=== PATIENT | male | born 1995 | race Caucasian/White ===

== ENCOUNTER 2020-06-01 20:10 | Emergency (ER) | payer BC, SELFPAY ==
--- NOTE | 2020-06-01 20:17 | PC.NURSE ---
EKG BEING OBTAINED AT THIS TIME.
[2020-06-01 20:19] VITALS: BP 129/67; PULSE 73; RESP 18; TEMP 37.1; O2SAT 97; BMI 27.1
[2020-06-01 20:30] VITALS: BP 120/78; PULSE 57; PULSE 66; RESP 19; TEMP 36.8; O2SAT 97
--- NOTE | 2020-06-01 20:44 | ECG_ITS ---
Test Reason : CHEST PAIN Blood Pressure : / mmHG Vent. Rate : 064 BPM Atrial Rate : 064 BPM P-R Int : 126 ms QRS Dur : 110 ms QT Int : 416 ms P-R-T Axes : 028 060 029 degrees QTc Int : 429 ms Normal sinus rhythm Normal ECG No previous ECGs available Referred By: Lee Olivas Electronically Signed By:RAFFY DURAN MD
--- NOTE | 2020-06-01 20:58 | ED_ITS ---
HPI - Arrhythmia/Palpitations General Chief Complaint: Arrhythmia/Palpitations Stated Complaint: palpitations Time Seen by Provider: 06/01/20 20:44 Source: patient Mode of arrival: ambulatory Limitations: no limitations History of Present Illness HPI narrative: patient presents to ED for Resolved palpitation. patient states around 13:00 he had palpitations while at home with his mother that then reslved. Patient denies any shortness of breath, swelling of lower extremities, calf pain, trauma to the chest, shortness of breath, any use of crack /cocaine, alcohol abuse, energy drinks, recent long travel, recent surgery, or history of blood clots. Patient states this happened twice before in the past. patient denies any chest pain, eye bulging, weight loss, weight gain, change in body temperature, coughing, fever, chills, left arm pain or night sweats. Related Data Allergies Allergy/AdvReac Type Severity Reaction Status Date / Time asparaginase Allergy Anaphylaxis Verified 06/01/20 20:25 plasma protein fraction Allergy Anaphylaxis Verified 06/01/20 20:25 Review of Systems Constitutional: Constitutional: Reports as per HPI and Reports no additional constitutional complaints Eyes: Eyes: Reports as per HPI and Reports no additional eye complaints ENT: Reports system reviewed and no additional complaints, except as documented and Reports as per HPI Cardiovascular: Cardiovascular: Reports as per HPI and Reports no additional cardiovascular complaints Comments: palpitations Respiratory: Respiratory: Reports as per HPI and Reports no additional res piratory complaints Gastrointestinal: Gastrointestinal: Reports as per HPI and Reports no addition al gastrointestinal complaints Genitourinary: Genitourinary: Reports no additional male genitourinary complaints and Reports as per HPI Musculoskeletal: Musculoskeletal: Reports no additional musculoskeletal complaints and Reports as per HPI Neurologic: Reports system reviewed and no additional complaints, except as documented and Reports as per HPI Psychiatric: Psychiatric: Reports no additional psychiatric complaints and R eports as per HPI PMFSH Past Medical History Medical History (Updated 06/01/20 @ 23:20 by KIRSTY Greene) Kidney calculi Non-Hodgkin lymphoma in remission Social History Social History Smoking Status: Never smoker Use of substances other than those prescribed or required for medical reasons: Yes Substance Use Type: Other Substance Use Type Other:: mushrooms Advance Directives: No Advance Directives Information Provided: Yes Physical Exam Vital Signs: Vital Signs: Last Vital Signs Temp 98.5 F 06/01/20 22:21 Pulse 63 06/01/20 22:21 Resp 15 06/01/20 22:21 BP 125/74 06/01/20 22:21 Pulse Ox 96 06/01/20 22:21 Body Mass Index 27.1 Const: General: cooperative, healthy appearing, comfortable, no acute distress, well developed, alert, awake and Physically active Orientation/consciousness: patient oriented x3 HENMT: Other: SLight erythema on both cheeks due to wearing of constructions masks. patinet states slight itchiness. Head: Yes normal to inspection and Yes No palpable skull fracture present Throat: Yes posterior oropharynx normal, Yes tonsils normal and Yes uvula midline Eyes: General: appearance normal, both eyes and all related structures Neck: Neck: Yes normal visual inspection, Yes full ROM, Yes no lymphadenopathy, Yes no meningeal signs, Yes trachea midline, Yes supple and No tender Chest: Chest palpation & inspection: normal inspection of the chest, normal palpation of entire chest wall and no localized rib tenderness Resp: Effort & Inspection: normal respiratory effort and able to speak in complete sentences Auscultation: clear to auscultation bilaterally Cardio: Jugular venous distension: no JVD Heart sounds: S1 normal heart sound present and S2 normal heart sound present GI: Inspection: Yes normal to inspection and No abdominal wall ecchymosis Palpation (GI): Soft to palpation, not firm, nontender, no guarding and not rigid : General: No CVA tenderness and Yes no CVA tenderness Back/Spine/Pelvis: Back: no CVA tenderness, No CVA tenderness and No back tenderness Skin: General skin exam: no rashes or lesions noted Neuro: General: patient oriented x3, gait normal, no meningeal signs and CN's II-XI intact bilaterally Cranial nerves: Yes CN's II-XII intact bilaterally Extrem: General: Yes normal to inspection and Yes full ROM Psych: Appearance: grossly normal, well kempt and not disheveled Course Course Course Narrative: Patient presently denies having any palpitation. Patient states last episode without palpitation was on 13:00 this afternoon. Patient will medical evaluation including troponin, D-dimer, and thyroid level. Patient also have EKG. Most likely patient having anxiety. Patient presently not in any distress. Patient informed to take benadryl for mild itchy facial rash due to mask. Reevaluation(s) Reevaluation #1: patient EKG is normal. troponin, and D-dimer came back negative. Recent labs include electrolytes are Normal. c TSH is normal. Perc score is 0. Patient is safe for discharge. Chest x-ray negative. Time: 23:16 MDM - Arrhythmia/Palpitations MDM Narrative Medical decision making narrative: palpitation Lab Data Result diagrams: 06/01/20 21:11 06/01/20 21:48 Labs: Lab Results 06/01/20 06/01/20 06/01/20 Range/Units 21:11 21:11 21:11 WBC 9.8 (4.8-10.8) X10*3/uL RBC 5.63 (4.60-5.80) X10*6/uL Hgb 17.5 (14.0-18.0) g/dl Hct 50.8 (42-52) % MCV 90.2 (80-98) fL MCH 31.1 (27.0-33.0) pg MCHC 34.4 (31.0-36.0) g/dl RDW 13.4 (11.0-16.0) % Plt Count 203 (160-400) X10*3/uL MPV 10.4 (9.4-12.4) fL Immature Gran % (Auto) 0.4 (0.0-0.4) % Neut % (Auto) 55.8 (45-73) % Lymph % (Auto) 30.7 (20-40) % [place] % (Auto) 12.0 H (2-11) % Eos % (Auto) 0.4 (0-4) % Baso % (Auto) 0.7 (0-2) % Lymph # (Auto) 3.0 (1.2-4.9) X10*3/uL [place] # (Auto) 1.2 (0.1-1.2) X10*3/uL Eos # (Auto) 0.0 (0.0-0.4) X10*3/uL Baso # (Auto) 0.1 (0.0-0.2) X10*3/uL Abs Immat Gran (auto) 0.04 H (0.00-0.03) X10*3/uL Absolute Neuts (auto) 5.5 (2.0-8.3) X10*3/uL Absolute Nucleated RBC 0.000 (0.0-0.012) X10*3/uL Nucleated RBC % (auto) 0.0 (0.0-0.2) /100WBC PT 12.1 (10.8-13.0) SEC INR 1.0 (0.9-1.1) APTT 28.7 (24.1-38.0) SEC D-Dimer < 200 NG/ML Sodium Cancelled Potassium Cancelled Chloride Cancelled Carbon Dioxide Cancelled Anion Gap Cancelled BUN Cancelled Creatinine Cancelled Estim Creat Clear Calc Cancelled Estimated GFR Cancelled Random Glucose Cancelled Calcium Cancelled Magnesium (1.6-2.6) mg/dL Total Bilirubin Cancelled AST Cancelled ALT Cancelled Alkaline Phosphatase Cancelled Troponin I High Sens (<3.5-35.0) ng/L Total Protein Cancelled Albumin Cancelled TSH (0.32-4.0) uIU/mL 06/01/20 06/01/20 Range/Units 21:11 21:48 WBC (4.8-10.8) X10*3/uL RBC (4.60-5.80) X10*6/uL Hgb (14.0-18.0) g/dl Hct (42-52) % MCV (80-98) fL MCH (27.0-33.0) pg MCHC (31.0-36.0) g/dl RDW (11.0-16.0) % Plt Count (160-400) X10*3/uL MPV (9.4-12.4) fL Immature Gran % (Auto) (0.0-0.4) % Neut % (Auto) (45-73) % Lymph % (Auto) (20-40) % [place] % (Auto) (2-11) % Eos % (Auto) (0-4) % Baso % (Auto) (0-2) % Lymph # (Auto) (1.2-4.9) X10*3/uL [place] # (Auto) (0.1-1.2) X10*3/uL Eos # (Auto) (0.0-0.4) X10*3/uL Baso # (Auto) (0.0-0.2) X10*3/uL Abs Immat Gran (auto) (0.00-0.03) X10*3/uL Absolute Neuts (auto) (2.0-8.3) X10*3/uL Absolute Nucleated RBC (0.0-0.012) X10*3/uL Nucleated RBC % (auto) (0.0-0.2) /100WBC PT (10.8-13.0) SEC INR (0.9-1.1) APTT (24.1-38.0) SEC D-Dimer NG/ML Sodium 139 Potassium 3.6 Chloride 100 Carbon Dioxide 28 Anion Gap 15 BUN 15 Creatinine 0.86 Estim Creat Clear Calc 146.6 Estimated GFR > 60 Random Glucose 118 H Calcium 9.3 Magnesium 1.8 (1.6-2.6) mg/dL Total Bilirubin 0.8 AST 21 ALT 45 H Alkaline Phosphatase 69 Troponin I High Sens < 3.5 (<3.5-35.0) ng/L Total Protein 7.0 Albumin 4.5 TSH 1.38 (0.32-4.0) uIU/mL ECG Data Interpretation: normal sinus rhythm. Ventricular rate 64. Pr interval 126. QRS 110. QTC 416. Negative STEMI Discharge Plan Discharge Clinical Impression: Palpitations Patient Disposition: Home, Self-Care Instructions: Heart Palpitations (ED) Additional Instructions: return to the ED immediately for any chest pain, shortness of breath, swelling of lower extremities, calf pain, fever, chills, dizziness, weakness, facial droop, paralysis of extremities, or any other concerning symptoms. Please follow-up with the PCP Discharge Date/Time: 06/01/20 23:27 Print Language: Citizen Of [place]
--- NOTE | 2020-06-01 21:09 | XR_ITS ---
EXAMINATION: XR CHEST CLINICAL INFORMATION: Question pneumonia. COMPARISON: None TECHNIQUE: Frontal view of the chest was obtained. FINDINGS: The lungs are clear. The cardiomediastinal silhouette is normal in size. There is no pleural effusion or pneumothorax. No acute osseous abnormality. XR/XR chest 1V IMPRESSION: No acute cardiopulmonary findings.
[2020-06-01 21:19] LABS: Basophils Absolute Auto 0.1 X10*3/uL (0.0-0.2); Basophils Percent Auto 0.7 % (0-2); Eosinophils Percent Auto 0.4 % (0-4); Hematocrit 50.8 % (42-52); Hemoglobin 17.5 g/dl (14.0-18.0); Imm Gran Abs Auto 0.04 X10*3/uL (0.00-0.03); Imm Gran Pct Auto 0.4 % (0.0-0.4); Lymphocytes Percent Auto 30.7 % (20-40); Mean Corpuscular HGB Conc 34.4 g/dl (31.0-36.0); Mean Corpuscular Hemoglobin 31.1 pg (27.0-33.0); Mean Corpuscular Volume 90.2 fL (80-98); Mean Platelet Volume 10.4 fL (9.4-12.4); Monocytes Absolute Auto 1.2 X10*3/uL (0.1-1.2); Neutrophils Absolute Auto 5.5 X10*3/uL (2.0-8.3); Neutrophils Percent Auto 55.8 % (45-73); Platelet Count 203 X10*3/uL (160-400); Red Blood Count 5.63 X10*6/uL (4.60-5.80); Red Cell Distribution Width 13.4 % (11.0-16.0); White Blood Count 9.8 X10*3/uL (4.8-10.8)
[2020-06-01 21:20] LABS: MANUAL DIFF FLAG NO
[2020-06-01 21:39] LABS: Prothrombin Time 12.1 SEC (10.8-13.0)
[2020-06-01 21:42] LABS: Partial Thromboplastin Time 28.7 SEC (24.1-38.0)
[2020-06-01 21:44] LABS: Troponin-I High Sensitivity < 3.5 ng/L (<3.5-35.0)
[2020-06-01 21:45] LABS: D Dimer < 200 NG/ML
[2020-06-01 22:16] LABS: Alanine Aminotransferase 45 U/L (0-40); Albumin Level 4.5 g/dL (3.5-5.0); Alkaline Phosphatase 69 U/L (39-117); Anion Gap 15 (12-20); Aspartate Amino Transferase 21 U/L (5-37); Bilirubin Total 0.8 mg/dL (0.0-1.0); Blood Urea Nitrogen 15 mg/dL (9-16); Calcium 9.3 mg/dL (8.4-10.2); Carbon Dioxide 28 mmol/L (22-29); Chloride 100 mmol/L (96-108); Creatinine Clr Calc Pharmacy 146.6; Estimated Glomerular Filt Rate > 60; Glucose Random 118 mg/dL (60-115); Magnesium 1.8 mg/dL (1.6-2.6); Potassium 3.6 mmol/l (3.3-5.1); Sodium 139 mmol/L (135-145)
[2020-06-01 22:21] VITALS: BP 125/74; PULSE 63; RESP 15; TEMP 36.9; O2SAT 96
[2020-06-01 23:10] LABS: Thyroid Stimulating Hormone 1.38 uIU/mL (0.32-4.0)
== END 2020-06-01 23:27 | disposition home or self-care (01) ==
PROVIDERS: Physician Assistant; Emergency Provider Internal Medicine
DX: R00.2 Palpitations (principal)
CPT/HCPCS: 36415; 71045; 80053; 83735; 84443; 84484; 85025; 85379; 85610; 85730; 93005; 99284